=== PATIENT | female | born 1995 | race Caucasian/White ===

== ENCOUNTER 2024-01-12 13:39 | Outpatient (AMB) | payer OTHER, SELFPAY ==
--- NOTE | 2024-01-12 13:50 | MHC.PC.OV ---
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 Alcohol Still Operator Required: No Accompanied by: Self / Same As Patient Allergies No Known Allergies Allergy (Verified 01/12/24 14:16) Tobacco use date assessed: 01/12/24 Dental Screening Dental Screen Date: 01/12/24 Did you have a dental visit in the last 12 months?: Yes Did you have a dental problem in the last 6 months where you did not have access to dental care?: No Was dental information given to patient?: Patient has dentist HPI HPI Comments History of Present Illness Details This is a 28-year-old female with no significant past medical history presenting to establish care. She has not had a primary care provider for several years. She is from [facility]. 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 She enjoys the outdoors. She is very active. She is also traveling. She got back from [place] recently. 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 Up-to-date. Patient feels like she may have had a UTI that is better now. She had a few days of burning with urination. She flushed with increased fluids and cranberry. Patient requests Tdap vaccine. Sister is having a baby. ROS: Constitutional: No unexplained weight loss, fever, chills, fatigue or night sweats. Eyes: No vision changes, blurry vision, double vision, eye pain, eye redness, eye discharge. ENT: No hearing loss, sneezing, congestion, runny nose or sore throat. Respiratory: No shortness of breath, cough or sputum production. Cardiovascular: No chest pain, chest pressure or chest discomfort. No palpitations or pedal edema. Gastrointestinal: No anorexia, nausea, vomiting or diarrhea. No abdominal pain or blood in stool. Genitourinary: No hematuria Neurologic: No headache, dizziness, syncope, unilateral weakness, ataxia, numbness or tingling in the extremities. Musculoskeletal: No muscle pain, back pain, joint pain or swelling. Hematologic/Lymphatics: No bleeding or bruising. No painful lymph nodes. Skin: No rash or itching. Endocrine: No cold or heat intolerance. No polyuria or polydipsia. Psychiatric: No depression or anxiety. No SI/HI. Physical exam: Constitutional: Alert, in no distress. Head: Normocephalic. Eyes: Pupils are equal, round and reactive to light. Extraocular muscles intact. Ear, Nose and Throat: Canals clear. TMs normal. Normal nasal mucosa. No nasal discharge. No oral lesions. Neck: Supple, Full range of motion. No lymphadenopathy. No palpable thyroid masses. Respiratory: Clear to auscultation. Cardiovascular: S1 S2 regular. No murmurs. Gastrointestinal: Abdomen soft, non-tender, non-distended. Normal bowel sounds. No palpable masses. Genitourinary: No costovertebral angle tenderness. Neurologic: No focal neurological deficits. Symmetric patellar reflexes. Moves all extremities spontaneously. Sensation intact bilaterally. Skin: No rashes. Flesh colored mole on the forehead near the scalpline. Musculoskeletal: No gross deformities. Normal range of motion. Extremities: Warm and well perfused. No clubbing, cyanosis or edema. 3+ peripheral pulses bilaterally. Psychiatric: Normal mood and affect [facility] Medical History (Updated 01/12/24 @ 14:35 by CARLOS Monk) Routine physical examination No pertinent past medical history Surgical History (Updated 01/12/24 @ 14:22 by CARLOS Monk) [place] teeth removed Family History (Updated 01/12/24 @ 14:26 by Eunice Armendariz CMA) Mother CAD (coronary artery disease) Hypertension Alcoholism Fibromyalgia Paternal Grandmother Type 2 diabetes mellitus Paternal Grandfather Type 2 diabetes mellitus Social History (Updated 01/12/24 @ 14:12 by Eunice Armendariz CMA) Household Members: Significant Other Housing: Apartment Are you a primary healthcare applications analyst to a significant other at home: No Do you presently have visiting nurse or other home services: No Alcohol intake: current Alcohol intake frequency: holidays/special occasions only Patient Tobacco Use Status: Never used Tobacco e-Cigarette/Vaping Use: Never Used service: No Current occupational status: employed Current occupation: [employer] Cognitive needs: No Hearing needs: No Vision needs: No Questionnaire PHQ-9 Over the last 2 weeks, how often have you been bothered by any of the following problems? 1. Little interest or pleasure in doing things: not at all 2. Feeling down, depressed, or hopeless: not at all 3. Trouble falling or staying asleep, or sleeping too much: not at all 4. Feeling tired or having little energy: not at all 5. Poor appetite or overeating: not at all 6. Feeling bad about yourself - or that you are a failure or have let yourself or your family down: several days 7. Trouble concentrating on things, such as reading the newspaper or watching television: not at all 8. Moving or speaking so slowly that other people could have noticed. Or the opposite - being so fidgety or restless that you have been moving around a lot more than usual: not at all 9. Thoughts that you would be better off or of hurting yourself in some way: not at all Total score: 1 Depression Screening Interpretation: Negative Depression Screening Done: Yes 58061 - PHQ-9 Billing: Yes Source: Developed by Drs. Vikram Mei, Oralia Morris, Jhony Jackson and colleagues, with an educational odell from [employer]. Thrive Questionnaire Date Thrive assessed: 01/12/24 I am a: Patient What is your living situation today?: I have a steady place to live Within the past 12 months, did the food you bought not last and you didn't have the money to get more?: Never true Within the past 12 months, did you worry whether your food would run out before you got money to buy more?: Never true Do you have trouble paying for medicines?: No Do you have trouble getting transportation to medical appointments?: No Do you have trouble paying your heating and electricity bill?: No Do you have trouble taking care of your child, family member or friend?: No Do you have trouble with day-to-day activities such as bathing, preparing meals, shopping, managing finances, etc.?: No Are you currently unemployed and looking for a job?: No Are you interested in more education?: No Please select the resources that you would like help with: None Currently or been in a relationship where the following occur: No concerns reported THRIVE Score: 0 AUDIT C Alcohol Use Questionnaire (AUDIT-C) 1. How often do you have a drink containing alcohol?: Monthly or less 2. How many drinks containing alcohol do you have on a typical day when you are drinking?: 1 or 2 3. How often do you have six or more drinks on one occasion?: Never Total Score: 1 TONY-7 AMB Questionnaire TONY-7 Date TONY - 7 assessed: 01/12/24 Feeling nervous, anxious, or on edge: 1 = Several days Not being able to stop or control worryin = Not at all Worrying too much about different things: 2 = More than half the days Trouble relaxin = Several days Being so restless that it is hard to sit still: 1 = Several days Becoming easily annoyed or irritable: 1 = Several days Feeling afraid as if something awful might happen: 0 = Not at all Total TONY-7 score (0-4 normal; 5-9 mild; 10-14 moderate; 15-21 severe): 6 Source: Developed by Drs. Vikram Mei, Oralia Morris, Jhony Jackson and colleagues, with an educational odell from [employer]. TONY-7 Assessment Billing TONY-7 Assessment Tool: TONY-7 Assessment 24029 Physical exam (Primary Care) Vital Signs: Last Vital Signs Pulse 86 01/12/24 13:56 Resp 12 01/12/24 13:56 BP 100/60 01/12/24 13:56 Pulse Ox 96 01/12/24 13:56 Oxygen Delivery Method Room Air 01/12/24 13:56 BMI result Body Mass Index 26.1 Tobacco/Smoking Status: Tobacco use Status Tobacco use date assessed 01/12/24 01/12/24 14:17 Patient Tobacco Use Status Never used Tobacco 01/12/24 14:17 e-Cigarette/Vaping Use Never Used 01/12/24 14:17 PHQ-9: PHQ-9 Score PHQ-9: Total score 1 01/12/24 15:05 Depression Screening Interpretation: Negative Thrive Assessment: Date of Thrive Assessment Date Thrive assessed 01/12/24 01/12/24 14:16 Currently or been in a relationship where the following occur: No concerns reported Results AMB Urinalysis Dipstick UR Leukocytes Small Last Edit by Eunice Armendariz CMA on 01/12/24 15:05 UR Nitrite Negative Last Edit by Eunice Armendariz, [facility] on 01/12/24 15:05 UR Urobilinogen Normal Last Edit by Eunice Armendariz, OMID on 01/12/24 15:05 UR Protein Trace Last Edit by Eunice Armendariz, OMID on 01/12/24 15:05 UR Ph 6.5 Last Edit by Eunice Armendariz, [facility] on 01/12/24 15:05 UR Blood Moderate Last Edit by Eunice Armendariz, [facility] on 01/12/24 15:05 UR Specific [place] 1.015 Last Edit by Eunice Armendariz, [facility] on 01/12/24 15:05 UR Ketone Negative Last Edit by Eunice Armendariz, [facility] on 01/12/24 15:05 UR Bilirubin Negative Last Edit by Eunice Armendariz CMA on 01/12/24 15:05 UR Glucose Negative Last Edit by Eunice Armendariz CMA on 01/12/24 15:05 Immunizations Boostrix Tdap 2.5 Lf unit-8 mcg-5 Lf/0.5 mL intramuscular syringe Performing Provider: CARLOS Monk Performing Location: [facility] Administered by: Eunice Armendariz CMA on 01/12/24 14:57 Dose Route Admin Location Dispensed Lot Number Expiration Date NDC Community Health Planning Director 0.5 mL IM Right Deltoid 0.5 mL [id number] 02/28/26 19966-411-10 [facility] Given Date VIS Provided VIS Publication Date 01/12/24 Single Vaccine 20 Eligibility Eligibility Date Funding Source Not [facility] Eligible 01/12/24 Private Results Reviewed Results Reviewed: Laboratory Last Values Urine pH (Clinic) 6.5 01/12/24 14:48 Specific [place] (Clinic) 1.015 01/12/24 14:48 Ur Protein (Clinic) Trace 01/12/24 14:48 Ur Ketones (Clinic) Negative 01/12/24 14:48 Urine Blood (Clinic) Moderate 01/12/24 14:48 Urine Nitrite Negative 01/12/24 14:48 Urine Bilirubin (Clinic) Negative 01/12/24 14:48 Urobilinogen (Clinic) Normal 01/12/24 14:48 Leukocyte Esterase (Clinic) Small 01/12/24 14:48 Urine Glucose (Clinic) Negative 01/12/24 14:48 Assessment and Plan Assessment & Plan (1) Routine physical examination: Code(s): Z00.00 - Encounter for general adult medical examination without abnormal findings (2) Dysuria: Code(s): R30.0 - Dysuria Plan Patient is seen today for a routine physical. As part of this visit we reviewed the following issues, which are considered and essential part of preventative health in this age group: - Breast Cancer screening - Annual Tape Control Skin Or Spar Mill Operator exam - Blood pressure screening - Cholesterol screening - Osteoporosis prevention including calcium/vitamin D intake, weight bearing exercise & smoking cessation - Nutritional and exercise counseling - Counseling of injury prevention including fire prevention, smoke alarms and seat belt usage - Screening for depression - Prevention of and/or testing for infectious diseases - declined - Education about skin cancer - referred to dermatology for skin exam - Recommendation of an eye exam - Screening for substance abuse - Genetic cancer risk screening Patient says dysuria is much better, but urine is sent for UA and culture to be cautious. Follow up in 1 year for complete physical exam. Orders: Orders Lipid Panel Today R30.0 - Dysuria, Z00.00 - Encounter for general adult medical examination without abnormal findings, Z13.6 - Encounter for screening for cardiovascular disorders UA w Microscopic Today R30.0 - Dysuria TDaP Immunization Today Z23 - Encounter for immunization AMB Urinalysis Dipstick Today R30.0 - Dysuria Comprehensive Met. Panel Today R30.0 - Dysuria, Z00.00 - Encounter for general adult medical examination without abnormal findings, Z13.6 - Encounter for screening for cardiovascular disorders Complete Blood Count no Diff Today R30.0 - Dysuria, Z00.00 - Encounter for general adult medical examination without abnormal findings, Z13.6 - Encounter for screening for cardiovascular disorders Urine Culture Today R30.0 - Dysuria Referrals Dermatology Referral Z12.83 - Encounter for screening for malignant neoplasm of skin Coding Level of Care Code New Pt Prev Care 18-39yr([id number] Diagnoses Routine physical examination Z00.00 Dysuria R30.0 Additional Codes TONY-7 Assessment Billing - TONY-7 Assessment Tool: TONY-7 Assessment 45487 ([id number])
[2024-01-12 13:56] VITALS: BP 100/60; PULSE 86; RESP 12; O2SAT 96; BMI 26.1
== END 2024-01-12 14:48 | disposition home or self-care (01) ==
PROVIDERS: PCP Physician Assistant Medical; Visit Provider Physician Assistant Medical
DX: Z00.00 Encounter for general adult medical examination without abnormal findings (principal); R30.0 Dysuria; Z23 Encounter for immunization
CPT/HCPCS: 81002; 90471; 90715; 99385

== ENCOUNTER 2024-01-12 14:38 | Outpatient (REF) | payer OTHER, SELFPAY | END 2024-01-12 14:39 | disposition home or self-care (01) | LOC: HO.LAB 14:38 | PROVIDERS: Visit Provider Physician Assistant Medical | DX: R30.0 Dysuria (principal) | CPT/HCPCS: 87086; 87088; 87186 ==

== ENCOUNTER 2024-02-21 07:25 | Outpatient (REF) | payer OTHER, SELFPAY ==
[2024-02-21 10:07] LABS: Hematocrit 38.2 % (37.0-47.0); Mean Corpuscular Hemoglobin 31.6 pg (27.0-33.0); Mean Corpuscular Volume 92.9 fL (80.0-98.0); Mean Platelet Volume 11.4 fL (9.4-12.3); Platelet Count 257 X10*3/uL (160-400); Red Blood Count 4.11 X10*6/uL (4.20-5.50); Red Cell Distribution Width 11.5 % (11.0-16.0); White Blood Count 8.3 X10*3/uL (4.8-10.8)
[2024-02-21 10:12] LABS: Appearance Urine Clear; Color Urine Yellow; Glucose Urine UA Negative (Negative); Leukocyte Esterase Urine Negative (Negative); Nitrite Urine Negative (Negative); Urine Blood Negative (Negative); Urine Ketones Negative (Negative); Urine Protein Negative (Neg-Trace)
[2024-02-21 10:15] LABS: Bacteria Urine None Seen (None Seen); Hyaline Casts Urine 0-2 /LPF (0-2); RBC Urine 0-2 /HPF (0-2); WBC Urine 0-5 /HPF (0-5)
[2024-02-21 10:29] LABS: Alanine Aminotransferase 15 U/L (0-31); Albumin Level 3.9 g/dL (3.5-5.0); Alkaline Phosphatase 38 U/L (39-117); Anion Gap 10 (12-20); Aspartate Amino Transferase 17 U/L (5-31); Bilirubin Total 0.5 mg/dL (0.0-1.0); Blood Urea Nitrogen 12 mg/dL (9-16); Carbon Dioxide 23 mmol/L (22-29); Chloride 111 mmol/L (96-108); Cholesterol 141 mg/dL (<200); Estimated Glomerular Filt Rate > 60; Glucose Random 100 mg/dL (60-115); HDL Cholesterol 51 mg/dL (>40); LDL Cholesterol Calculated 79 mg/dL (<100); Potassium 3.7 mmol/L (3.3-5.1); Sodium 140 mmol/L (135-145); Total Protein 6.1 g/dL (6.5-8.0); Triglycerides 57 mg/dL (<150)
== END 2024-02-21 07:26 | disposition home or self-care (01) ==
LOC: HO.HMGCLDS 07:25
PROVIDERS: PCP Physician Assistant Medical; Visit Provider Physician Assistant Medical
DX: Z00.00 Encounter for general adult medical examination without abnormal findings (principal); R30.0 Dysuria; Z13.6 Encounter for screening for cardiovascular disorders
CPT/HCPCS: 36415; 80053; 80061; 81001; 85027